=== PATIENT | female | born 1965 | race Caucasian/White ===

== ENCOUNTER 2020-04-15 16:03 | Inpatient (IN) | payer OTHER ==
[~2020-04-15] VITALS: Ht 165.1 cm; Wt 71.7 kg
[~2020-04-15 16:03] MED LIST: BUPR75TA21 PO; DULO60CA45 PO; QUIN5TAB11 PO
[2020-04-15] MEDS ORDERED: DEXTROSE 50%-WATER 50 ML DISP.SYRIN ONE ×3 (16:07→21:58)
--- NOTE | 2020-04-15 16:20 | NUR ---
[facility] HOME, PASSED OUT. HYPOGLYCEMIC UPON EMS ARRIVAL. GLUCAGON IM AND D10 250ML GIVEN CARDIOVASCULAR TECHNICIAN. BG RECHECK 88 CARDIOVASCULAR TECHNICIAN. PT AAOX2 SLOW TO RESPOND, VSS, RR EVEN & UNLABORED. DENIES CP, SOB, DIZZINESS, N/V AT THIS TIME. DR. ORDONEZ AT FOR EVAL. PT ABLE TO MOVE ALL EXTREMITIES SLOWLY, NO FACIAL DROOP. PLACED ON OXYACETYLENE BURNER, NSR. MEDICATED W/ D50 IVP, PT RYAN WELL. WILL CONT TO MONITOR.
[2020-04-15] MEDS ORDERED: IV NS 0.9% 1,000 ML BAG IV ONE (16:30)
[2020-04-15] MEDS ORDERED: DEXTROSE 50%-WATER 50 ML DISP.SYRIN IV ONE (16:30)
--- NOTE | 2020-04-15 16:49 | NUR ---
PT TO CT VIA [facility].
[2020-04-15 16:57] LABS: BASOPHILS % (AUTO) 0.1 % (0.0-2.0); HEMATOCRIT 46 % (33-45); HEMOGLOBIN 14.9 g/dL (11.5-14.8); LYMPHOCYTES # (AUTO) 1.2 /CMM (0.8-4.8); LYMPHOCYTES % (AUTO) 7.7 % (20.0-44.0); MEAN CORPUSCULAR HGB CONC 32 g/dl (31.0-36.0); MEAN CORPUSCULAR VOLUME 94 fL (82-100); MONOCYTES # (AUTO) 0.8 /CMM (0.1-1.30); MONOCYTES % (AUTO) 5.6 % (2.0-12.0); NEUTROPHILS # (AUTO) 13.1 /CMM (1.8-8.9); NEUTROPHILS % (AUTO) 86.6 % (43.0-81.0); PLATELET COUNT (AUTO) 381 /CMM (150-450); RED BLOOD CELL COUNT(AUTO) 4.88 MIL/uL (4.0-5.2); WHITE BLOOD COUNT (AUTO) 15.2 K/uL (4.3-11.0)
[2020-04-15 17:08] LABS: CALCIUM, SERUM 8.6 mg/dL (8.5-10.1); CARBON DIOXIDE 30 mmol/L (21-32); CHLORIDE 104 mmol/L (98-107); CREATININE 1.2 mg/dL (0.6-1.3); GLUCOSE 211 mg/dL (74-106); POTASSIUM 4.1 mmol/L (3.5-5.1); SODIUM SERUM 140 mmol/L (136-145); UREA NITROGEN, BLOOD 20 mg/dL (7-18)
[2020-04-15 17:10] LABS: SERUM AMMONIA 13 umol/L (11-32)
[2020-04-15 17:14] LABS: ALANINE AMINOTRANSFERASE 27 U/L (12-78); ALBUMIN 3.2 g/dL (3.4-5.0); ALCOHOL, BLOOD < 3 mg/dL (0-0); ALKALINE PHOSPHATASE 90 U/L (46-116); ASPARTATE AMINOTRANSFERASE 62 U/L (15-37); BILIRUBIN,DIRECT 0.1 mg/dL (0.0-0.2); BILIRUBIN,TOTAL 0.1 mg/dL (0.2-1.0); TOTAL PROTEIN, SERUM 6.8 g/dL (6.4-8.2)
[2020-04-15 17:22] LABS: THYROID STIMULATING HORMONE 0.654 uIU/mL (0.358-3.74)
[2020-04-15] MEDS ORDERED: DILTIAZEM HCL 50 MG IV IV ONE (17:30)
[2020-04-15] MEDS ORDERED: DILTIAZEM HCL 30 MG TABLET PO ONE (17:30)
[2020-04-15] MEDS ORDERED: ENOXAPARIN SODIUM 80 MG/0.8 ML DISP.SYRIN SQ ONE ×2 (17:30→17:40)
[2020-04-15] MEDS ORDERED: DILTIAZEM HCL 30 MG TABLET ONE (17:40)
[2020-04-15] MEDS ORDERED: DILTIAZEM HCL 50 MG IV ONE (17:42)
--- NOTE | 2020-04-15 17:52 | NUR ---
MEDICATED PER ERMD ORDER FOR FAST HR, PT RYAN WELL. PT STABLE, NAD NOTED AT THIS TIME.
[2020-04-15 17:59] LABS: SALICYLATE 0.6 mg/dL (2.8-20.0)
[2020-04-15] MEDS ORDERED: AMPH10TA4 MT (18:02)
[2020-04-15] MEDS ORDERED: DULO30CA52 MT (18:02)
[2020-04-15] MEDS ORDERED: BUPR-51 MT (18:02)
[2020-04-15] MEDS ORDERED: LEVO75TA7 MT (18:02)
[2020-04-15] MEDS ORDERED: INSU100V SQ (18:02)
--- NOTE | 2020-04-15 19:05 | NUR ---
PT ASLEEP, EASILY AWAKEN BY VERBAL STIMULI & WILL GO BACK TO SLEEP. VSS. DENIES CP, SOB, DIZZINESS, N/V AT THIS TIME. ON TELE, NSR & WILL CONT TO MONITOR.
--- NOTE | 2020-04-15 20:06 | NUR ---
PT BLOOD SUGAR 32MG/DL. MEDICATED WITH D5O IVP PER DR. ORDONEZ'S ORDER, PT RYAN WELL.
[2020-04-15] MEDS ORDERED: DEXTROSE 50%-WATER 50 ML DISP.SYRIN IVP ONE ×2 (20:30→22:00)
--- NOTE | 2020-04-15 21:50 | NUR ---
REPORT GIVEN TO KIA OSCAR FOR JAYSHREE.
[2020-04-15 22:20] VITALS: BP 128/77
--- NOTE | 2020-04-15 22:30 | NUR ---
TELE-1/[employer] REP DURING ADMISSION ASSESSMENT PT ADMITTING TO DRINKING RUBBING ALCOHOL. SOCIAL SERVICE CONSULT ORDERED.
[2020-04-15] MEDS ORDERED: IV D5/0.45 NACL 1,000 ML IV PRN (22:57)
[2020-04-15] MEDS ORDERED: ZOLPIDEM TARTRATE 5 MG TABLET PO PRN (23:00)
[2020-04-15] MEDS ORDERED: MORPHINE SULFATE INJ 2 MG/ML DISP.SYRIN IV PRN (23:00)
[2020-04-15] MEDS ORDERED: HYDROCODONE/APAP 5/325MG TABLET PO PRN (23:00)
[2020-04-15] MEDS ORDERED: MAG HYDROX/AL HYDROX/SIMETH 30 ML UDC PO PRN (23:00)
[2020-04-15] MEDS ORDERED: NITROGLYCERIN 0.4 MG/TAB BOTTLE SL PRN (23:00)
[2020-04-15] MEDS ORDERED: Z GUARD REMEDY 2 OZ OINT TP PRN (23:00)
[2020-04-15] MEDS ORDERED: MAGNESIUM HYDROXIDE 30 ML UDC PO PRN (23:00)
[2020-04-15] MEDS ORDERED: INSULIN REGULAR, HUMAN 100 UNIT/ML 3 ML VIAL SQ PRN (23:00)
[2020-04-15] MEDS ORDERED: ACETAMINOPHEN 325 MG TABLET PO PRN (23:00)
[2020-04-15] MEDS ORDERED: DEXTROSE 50%-WATER 50 ML DISP.SYRIN IV PRN (23:00)
[2020-04-16] VITALS: BP 120/90
--- NOTE | 2020-04-16 00:38 | NUR ---
BUSINESS SYSTEMS ANALYST NOTES, INFORMED DR CHAMBERS ABOUT THE RESULTS FOR TROPONIN LEVEL 0.356 AND HE REPLIED WITH NO NEW ORDERS AT THIS TIME, HE ASKED IF PATIENT C/O CHEST PAIN OR SOB, PATIENT DENIES CP/SOB AT THIS TIME, AND MD STATED THAT PATIENT ALREADY IN [place], AND THEREFORE NO NEW ORDERS AT THIS TIME, WILL CONTINUE TO MONITOR CLOSELY.
--- NOTE | 2020-04-16 00:50 | NUR ---
TELE-1/[facility] [facility] NP INSERTED RIGHT UPPER ARM MIDLINE. PT TOLERATED WELL.
[2020-04-16 04:00] VITALS: BP 105/60
[2020-04-16 06:12] LABS: BASOPHILS % (AUTO) 0.3 % (0.0-2.0); EOSINOPHILS % (AUTO) 0.1 % (0.0-6.0); HEMATOCRIT 39 % (33-45); HEMOGLOBIN 12.9 g/dL (11.5-14.8); LYMPHOCYTES # (AUTO) 1.1 /CMM (0.8-4.8); LYMPHOCYTES % (AUTO) 12.5 % (20.0-44.0); MEAN CORPUSCULAR HGB CONC 33 g/dl (31.0-36.0); MEAN CORPUSCULAR VOLUME 94 fL (82-100); MONOCYTES # (AUTO) 1.1 /CMM (0.1-1.30); MONOCYTES % (AUTO) 12.6 % (2.0-12.0); NEUTROPHILS # (AUTO) 6.4 /CMM (1.8-8.9); NEUTROPHILS % (AUTO) 74.5 % (43.0-81.0); PLATELET COUNT (AUTO) 305 /CMM (150-450); WHITE BLOOD COUNT (AUTO) 8.6 K/uL (4.3-11.0)
[2020-04-16 06:29] LABS: THYROID STIMULATING HORMONE 0.595 uIU/mL (0.358-3.74)
[2020-04-16] MEDS: BLOOD SUGAR DIAGNOSTIC 1 EACH STRIP IN SCH ×2 (06:35→12:26)
[2020-04-16 06:38] LABS: CALCIUM, SERUM 8.5 mg/dL (8.5-10.1); CREATININE 1.4 mg/dL (0.6-1.3); MAGNESIUM 1.6 mg/dL (1.8-2.4); PHOSPHORUS 2.3 mg/dL (2.5-4.9); POTASSIUM 4.4 mmol/L (3.5-5.1)
--- NOTE | 2020-04-16 06:51 | NUR ---
TELE-1/INTERNAL COMMUNICATIONS INTERN CRITICAL BLOOD GLUCOSE 511 MAX COVERAGE GIVEN PER SLIDING SCALE DR. RADHA KRAMER. AWAITING CALL BACK. WILL CONTINUE TO MONITOR.
[2020-04-16] MEDS ORDERED: LEVOTHYROXINE SODIUM 75 MCG TABLET PO SCH (07:00)
--- NOTE | 2020-04-16 07:03 | NUR ---
TELE-1/RECEIVING TEAM MEMBER INSULIN PUMP SENT TO PHARMACY. RECEIPT IN PT CHART.
--- NOTE | 2020-04-16 07:17 | NUR ---
MID LEVEL GAME DESIGNER OPENING NOTE RECEIVED REPORT FROM [facility] SHIFT NURSE. PT AWAKE IN BED, ALERT AND ORIENTED X 4, ON ROOM AIR, SATURATING WELL, RESPIRATIONS EVEN AND UNLABORED, NO SIGNS OF RESPIRATORY DISTRESS NOTED. SINUS RHYTHM ON TELE MONITOR. RIGHT UPPER ARM MIDLINE INTACT, PATENT. BLOOD GLUCOSE CHECKED: 495MG/DL. PT REPORTS HEADACHE, NAUSEA, THIRST. DENIES ANY SI AT THIS TIME. BED IN LOW POSITION, LOCKED, CALL LIGHT WITHIN REACH. INTRODUCED SELF TO PT AND DISCUSSED PLAN OF CARE.
[2020-04-16 08:00] VITALS: BP 128/68
[2020-04-16] MEDS: ONDANSETRON HCL/PF 4 MG/2 ML VIAL IVP PRN ×3 (08:02→13:29)
[2020-04-16 08:13] VITALS: BP 128/68
[2020-04-16] MEDS ORDERED: DULOXETINE HCL 30 MG CAPSULE.DR PO SCH (09:00)
[2020-04-16] MEDS ORDERED: ASPIRIN EC 81 MG TABLET.DR PO SCH (09:00)
[2020-04-16] MEDS ORDERED: AMPHET ASP/AMPHET/D-AMPHET 10 MG TABLET PO SCH ×2 (09:00)
[2020-04-16] MEDS ORDERED: ENOXAPARIN SODIUM 80 MG/0.8 ML DISP.SYRIN SQ SCH (09:00)
[2020-04-16] MEDS ORDERED: BUPROPION XL 150 MG TAB.ER.24 PO SCH (09:00)
--- NOTE | 2020-04-16 09:15 | NUR ---
RECEIVED CALL FROM SISTER STEFAN- WHO STATES SHE IS WORRIED ABOUT HER SISTERS WELL BEING, STATES HER SISTER HAS TALKED ABOUT SELF HARM. STEFAN ALSO STATED THAT SHE DOESNT THINK ITS A GOOD IDEA FOR PATIENT TO BE DISCHARGED AND TO GO BACK HOME WITH HER .
--- NOTE | 2020-04-16 09:15 | NUR ---
PT STATES SHE WANTS TO LEAVE AMA. NORRIS ROGER NOTIFIED, ORDERED CRISIS TEAM EVALUATION.
--- NOTE | 2020-04-16 10:28 | NUR ---
GAVE REPORT TO CONTRERAS ADAM FOR JAYSHREE
--- NOTE | 2020-04-16 10:30 | NUR ---
TAMELA RN NOTES RECEIVED PT. ALERT AND ORIENTED X4. BED IN LOWEST POSITION. CALL LIGHT WITHIN REACH. RAILS ARE UP X2. WILL CONTINUE TO MONITOR
[2020-04-16] MEDS: Magnesium 1GM/D5W 100ML PREMIX 100 ML IV SCH ×2 (10:52→12:05)
[2020-04-16 12:00] VITALS: BP_SYST 117; BP_SYST 98; BP_DIAS 59; BP_DIAS 67
[2020-04-16] MEDS ORDERED: K PHOS NEUTRAL 250 MG TABLET PO ONE (12:00)
--- NOTE | 2020-04-16 12:30 | NUR ---
TAMELA RN NOTES PSYCH EVAL WAS DONE. PT WAS CLEARED.WAITING FOR DC ORDERS
[2020-04-16 12:33] VITALS: BP 117/67
--- NOTE | 2020-04-16 12:48 | NUR ---
SW CONSULT: Scraper Tender reviewed pt's chart and consulted with pt's nurse, Nakita prior to conducting a consult, "Pt admits to drinking rubbing alcohol this week." Per Nakita, the pt was assessed and cleared by psychiatry and is set to discharge home with her in 1-2 hours. Per Nakita, a psych consult was ordered due to third constitution party information received from the pt's sister indicating that the pt has previously reported suicidal ideation. Scraper Tender conducted the consult at bedside. The pt appeared slightly disoriented and was preoccupied about her insulin pump. Upon assessment, the pt admitted to drinking a "tiny, tiny bit" of rubbing alcohol with orange juice. Pt reported an extensive history of drug and alcohol use, last use of both being approximately 4 years ago. Pt reported she underwent inpatient drug and alcohol treatment at [facility] in [place], "a few years ago." Pt denies any drug or alcohol use of this time, aside from the episode of rubbing alcohol ingestion. Scraper Tender offered drug and alcohol resources; pt declined. 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 Pt reported she is looking forward to discharging home with her and feels safe doing so. Scraper Tender provided active listening and emotional support.
[2020-04-16] MEDS ORDERED: RIVA10TA PO (13:48)
--- NOTE | 2020-04-16 14:52 | NUR ---
TAMELA RN NOTES RECEIVED DC ORDER FROM DR NORRIS ROGER. PT SIGNED DC AND BELONGING FORM. VS WNL. PT WAS WHEELED DOWN TO HER CAR.
--- NOTE | 2020-04-16 14:59 | NUR ---
TAMELA RN NOTES IV DC. PT IS IN STABLE CONDITION . VS WNL.
== END 2020-04-16 15:00 | disposition home or self-care (01) | DRG 637 ==
LOC: ER 16:11 → TELE1 20:18
PROVIDERS: ATTEND Nurse Practitioner Acute Care
DX: E11.649 Type 2 diabetes mellitus with hypoglycemia without coma (principal); I21.A1 Myocardial infarction type 2; G93.41 Metabolic encephalopathy; I48.91 Unspecified atrial fibrillation; Z79.4 Long term (current) use of insulin; D72.829 Elevated white blood cell count, unspecified; Z96.41 Presence of insulin pump (external) (internal); E83.42 Hypomagnesemia
CPT/HCPCS: 36410; 36415; 70450-TC; 71045-TC; 80048-TC; 80061-TC; 80076-TC; 80305; 82140-TC; 82962-TC; 83735-TC; 83880; 84100-TC; 84443-TC; 84484-TC; 84703-TC; 85025-TC; 85730-TC; 87081-TC; 93307-TC; G0378; G0480; J1650; J1815; J2405; J3475; J3490; J7030; J7042

== ENCOUNTER 2022-11-13 15:01 | Inpatient (IN) | payer BC, OTHER ==
[~2022-11-13] VITALS: Ht 165.1 cm; Wt 65.8 kg
[2022-11-13] VITALS (7 sets, daily range): BP systolic 108–137; BP diastolic 49–76
[~2022-11-13 15:01] MED LIST changes: -BUPR75TA21 PO; +DULO30CA52 MT; -DULO60CA45 PO; +INSU100V SQ; +LEVO75TA7 MT; -QUIN5TAB11 PO; +RIVA10TA PO
[2022-11-13] MEDS ORDERED: IV NS 0.9% 1,000 ML BAG IV ONE ×3 (15:30→17:00)
--- NOTE | 2022-11-13 15:30 | NUR ---
TO ER 02, LABS DRAWN
--- NOTE | 2022-11-13 15:31 | NUR ---
IVF FLUIDS GIVEN ORDERED
--- NOTE | 2022-11-13 15:35 | NUR ---
Accu Check Blood glucose level: HIGH
[2022-11-13] MEDS ORDERED: ONDANSETRON HCL/PF 4 MG/2 ML VIAL ONE (15:36)
[2022-11-13 15:59] LABS: BASOPHILS # (AUTO) 0.1 K/uL (0.0-0.2); BASOPHILS % (AUTO) 0.4 % (0.0-2.0); HEMATOCRIT 44 % (33-45); HEMOGLOBIN 12.5 g/dL (11.5-14.8); LYMPHOCYTES # (AUTO) 1.3 K/uL (0.8-4.8); LYMPHOCYTES % (AUTO) 6.6 % (20.0-44.0); MEAN CORPUSCULAR HGB CONC 29 g/dl (31.0-36.0); MEAN CORPUSCULAR VOLUME 101 fL (82-100); MONOCYTES # (AUTO) 1.2 K/uL (0.1-1.30); NEUTROPHILS # (AUTO) 17.2 K/uL (1.8-8.9); PLATELET COUNT (AUTO) 526 K/uL (150-450); RED BLOOD CELL COUNT(AUTO) 4.33 MIL/uL (4.0-5.2); WHITE BLOOD COUNT (AUTO) 19.8 K/uL (4.3-11.0)
[2022-11-13] MEDS ORDERED: ONDANSETRON HCL/PF 4 MG/2 ML VIAL IV ONE (16:00)
--- NOTE | 2022-11-13 16:00 | NUR ---
RAPID COVID SWAB DONE AND SENT TO LAB
[2022-11-13 16:29] LABS: ALANINE AMINOTRANSFERASE 29 U/L (12-78); ALBUMIN 3.8 g/dL (3.4-5.0); ALKALINE PHOSPHATASE 157 U/L (46-116); ASPARTATE AMINOTRANSFERASE 17 U/L (15-37); BILIRUBIN,DIRECT 0.1 mg/dL (0.0-0.2); BILIRUBIN,TOTAL 0.5 mg/dL (0.2-1.0); CALCIUM, SERUM 10.4 mg/dL (8.5-10.1); CHLORIDE 88 mmol/L (98-107); CREATININE 2.2 mg/dL (0.6-1.3); POTASSIUM 5.7 mmol/L (3.5-5.1); SODIUM SERUM 132 mmol/L (136-145); TOTAL PROTEIN, SERUM 8.1 g/dL (6.4-8.2); UREA NITROGEN, BLOOD 51 mg/dL (7-18)
[2022-11-13 16:49] LABS: CARBON DIOXIDE 7 mmol/L (21-32); GLUCOSE 831 mg/dL (74-106); LIPASE 1667 U/L (73-393)
--- NOTE | 2022-11-13 16:57 | NUR ---
NOTIFIED BY ADMITTING THAT THE PT NEEDS TO HAVE AUTHORIZATION FOR THE PT TO STAY HERE
[2022-11-13] MEDS ORDERED: INSULIN REGULAR, HUMAN 100 UNITS in IV NS 0.9% 100 ML IV PRN ×2 (17:00)
[2022-11-13] MEDS ORDERED: BUPR-319 PO (17:04)
[2022-11-13] MEDS ORDERED: THYR30TA2 PO (17:04)
[2022-11-13] MEDS ORDERED: LOSA50TA39 PO (17:04)
[2022-11-13] MEDS ORDERED: INSU100V11 (17:04)
--- NOTE | 2022-11-13 17:15 | NUR ---
ROOM 256
--- NOTE | 2022-11-13 17:22 | NUR ---
REPORT GIVEN TO ERICK ADAM OF ICU
[2022-11-13] MEDS ORDERED: AZTREONAM 1 G in IV NS 0.9% 100 ML IV ONE (17:30)
[2022-11-13] MEDS ORDERED: VANCOMYCIN 1 GM in IV D5W 250 ML IV ONE (17:30)
[2022-11-13] MEDS ORDERED: AZITHROMYCIN 500 MG in IV D5W 250 ML IV ONE (17:30)
--- NOTE | 2022-11-13 17:30 | NUR ---
RN note REcevied patient from ER, transferred to unit by jailene, with KIA mayo's accompany. Patient is alert and conscious, complained cold. Cardiac monitro showed SR HR 80/min. BP 155/89mmHg. SpO2 96% RA, RR 23/min. Right IJ and right hand IV sites are dry and intact. Insulin drip running via RIJ and two NS IVF running through Right hand. Blood sugar showed >600. Call pantoja is placed within reach. Bed is locked and palced in the lowest position. Will continue monitoring.
--- NOTE | 2022-11-13 17:45 | NUR ---
URINE SPECIMEN COLLECTED AND SENT TO LAB.
[2022-11-13] MEDS: BLOOD SUGAR DIAGNOSTIC 1 EACH STRIP IN SCH ×6 (18:05→23:04)
--- NOTE | 2022-11-13 18:15 | NUR ---
RN note Noted that blood culture is not taken yet and hold antibiotics until blood culture is taken. Started antibiotics at 1815.
[2022-11-13] MEDS: IV NS 0.9% 1,000 ML IV SCH (18:22)
[2022-11-13 18:23] LABS: BILIRUBIN,URINE NEGATIVE (NEGATIVE); COLOR,URINE YELLOW (YELLOW); LEUKOCYTE ESTERASE ,URINE NEGATIVE (NEGATIVE); NITRITE, URINE NEGATIVE (NEGATIVE); PH,URINE 5.5 (5.0-8.0); PROTEIN,URINE NEGATIVE (NEGATIVE); UGLUCOSE 3+ mg/dL (NEGATIVE); UROBILINOGEN,URINE 0.2 EU/dL (0.2)
[2022-11-13] MEDS ORDERED: INSULIN REGULAR, HUMAN 100 UNIT/ML 10 ML VIAL IV ONE (18:30)
[2022-11-13] MEDS ORDERED: ONDANSETRON HCL/PF 4 MG/2 ML VIAL IVP PRN (18:30)
[2022-11-13] MEDS ORDERED: ACETAMINOPHEN 325 MG TABLET PO PRN (18:30)
[2022-11-13] MEDS ORDERED: Z GUARD REMEDY 4 OZ OINT TP PRN (18:30)
[2022-11-13] MEDS ORDERED: IV NS 0.9% 1,000 ML IV PRN (18:30)
[2022-11-13] MEDS: INSULIN REGULAR, HUMAN 100 UNIT in IV NS 0.9% 99 ML IV PRN ×4 (18:53→23:05)
[2022-11-13 19:05] LABS: CALCIUM, SERUM 8.8 mg/dL (8.5-10.1); POTASSIUM 4.9 mmol/L (3.5-5.1)
--- NOTE | 2022-11-13 19:21 | NUR ---
RN note Blood sugar at 1900 was >600. Adminsitered stat IV 10U insulin and continue insulin infusion.
--- NOTE | 2022-11-13 19:30 | NUR ---
ICU NOTES Received report from outgoing RN patient awake oriented x1.Reoriented to place and time. Respiration even and unlabored with acetone like breath.O2 saturation 100% on RA.Dx:DKA. H/O IDDM,HTN,DVT,PSYCHOSIS and Substance Abuse.ST 106-112.Patient with elevated blood sugar 500+ Insulin gtt infusing per protocol.IVF NS infusing at 150 ml/hr.Patient denies pain or any discomfort.Safety measures implemented.Call light at bedside.Continue monitoring.
[2022-11-13] MEDS ORDERED: LEVOFLOXACIN 750 MG /D5W 150ML 750 MG in PREMIX 1 EA IV SCH (20:00)
--- NOTE | 2022-11-13 20:19 | NUR ---
ICU/RN: CRITICAL BMP RESULTS RELAYED TO MERCED OWENS ACNP CO2 6 AND GLUCOSE 705. NO NEW ORDERS. KEEP INSULIN DRIP RUNNING AT 10UNITS/HR. FOLLOW UP BMP AT 2230. WILL CONTINUE PLAN OF CARE.
--- NOTE | 2022-11-13 21:02 | NUR ---
ICU/RN: per chaz thornton acnp change to DKA algorithm 4 and run max dose 20units/hr. CURRENT POC BG 550.
[2022-11-13] MEDS: DOXYCYCLINE 100 MG in IV D5W 100 ML IV SCH (21:08)
[2022-11-13] MEDS: HEPARIN SODIUM, PORCINE 5000 UNITS/1 ML VIAL SQ SCH (21:09)
[2022-11-13 22:53] LABS: CALCIUM, SERUM 8.6 mg/dL (8.5-10.1); CREATININE 1.8 mg/dL (0.6-1.3); POTASSIUM 4.2 mmol/L (3.5-5.1)
[2022-11-13] MEDS: IV NS 0.9% 250 ML IV PRN (23:11)
[2022-11-14] VITALS (29 sets, daily range): BP systolic 98–159; BP diastolic 51–86
--- NOTE | 2022-11-14 | NUR ---
ICU NOTES. Patient verbalized please help me and did not void since 1899.Bladder distended MD notified. With orders received and carried out.Malone Catheter FR# 16 Inserted under aseptic technique drained 1100 ml.Patient tolerated procedure well and resting comfortably after.
[2022-11-14] MEDS: BLOOD SUGAR DIAGNOSTIC 1 EACH STRIP IN SCH ×9 (00:12→08:01)
[2022-11-14] MEDS: IV NS 0.9% 1,000 ML IV SCH (01:32)
[2022-11-14] MEDS ORDERED: IV PREMIX D5 1/2NS + KCL 1,000 ML IV ONE (02:18)
--- NOTE | 2022-11-14 02:26 | NUR ---
ICU NOTES Patient latest Blood sugar check 245.Current IVF changed to D5W1/2 NS+20 Meq KCL at 100 ml/hr per protocol.
[2022-11-14] MEDS ORDERED: IV PREMIX D5 1/2NS + KCL 1,000 ML IV PRN (02:30)
[2022-11-14 03:12] LABS: CALCIUM, SERUM 8.9 mg/dL (8.5-10.1); CREATININE 1.6 mg/dL (0.6-1.3); POTASSIUM 4.1 mmol/L (3.5-5.1)
[2022-11-14 03:45] LABS: ABG BASE EXCESS -5.4 mmol/L; ABG OXYGEN SATURATION 97.8 % (92.0-98.5); ABG PCO2 27.2 mmHg (35.0-45.0); ABG PO2 101.4 mmHg (75.0-100.0); AaDO2 15.8 mmHg; COHb 0.2 % (0.5-1.5); MetHb 0.3 % (0.0-1.5); O2Hb 97.3 % (94.0-97.0); SITE, ABG Right Radial; VENT MODE, BG Room Air
[2022-11-14 04:56] LABS: BASOPHILS # (AUTO) 0.1 K/uL (0.0-0.2); BASOPHILS % (AUTO) 0.4 % (0.0-2.0); EOSINOPHILS % (AUTO) 0.1 % (0.0-6.0); HEMATOCRIT 33 % (33-45); HEMOGLOBIN 10.7 g/dL (11.5-14.8); LYMPHOCYTES # (AUTO) 1.1 K/uL (0.8-4.8); LYMPHOCYTES % (AUTO) 5.6 % (20.0-44.0); MEAN CORPUSCULAR HGB CONC 32 g/dl (31.0-36.0); MEAN CORPUSCULAR VOLUME 90 fL (82-100); MONOCYTES # (AUTO) 1.9 K/uL (0.1-1.30); MONOCYTES % (AUTO) 9.8 % (2.0-12.0); NEUTROPHILS # (AUTO) 16.8 K/uL (1.8-8.9); NEUTROPHILS % (AUTO) 84.1 % (43.0-81.0); PLATELET COUNT (AUTO) 375 K/uL (150-450); RED BLOOD CELL COUNT(AUTO) 3.67 MIL/uL (4.0-5.2)
[2022-11-14 05:12] LABS: CALCIUM, SERUM 8.7 mg/dL (8.5-10.1); CREATININE 1.4 mg/dL (0.6-1.3); MAGNESIUM 1.7 mg/dL (1.8-2.4); PHOSPHORUS 1.4 mg/dL (2.5-4.9); POTASSIUM 4.1 mmol/L (3.5-5.1)
[2022-11-14 05:42] LABS: THYROID STIMULATING HORMONE 1.038 uIU/mL (0.358-3.74)
--- NOTE | 2022-11-14 06:30 | NUR ---
ICU NOTES Patient resting in no acute distress,VS remains stable.ST low 100's.Patient confused safety precaution maintained.Insulin gtt infusing at 3 Units/hr and will continue to monitor Blood sugar hourly per protocol.IVF infusing well.Bed bath rendered.BM x1 formed stools.Kept clean and dry. Adequate urine output.Continue to monitor.
--- NOTE | 2022-11-14 07:15 | NUR ---
RN note Received patient in bed, spontaneous eye opening, GCS [id number]. hall monitor showed SR HR 100/min. BP 104/60mmHg, SpO2 98% RA, RR~20/min. Right IJ and right hand IV sites are dry and patent, with insulin infusion running at 3U/hr via right IJ; and maintanence IVF running through the right hand. Continue hourly blood glucose monitoring until four consecutive readings of 140-180 have been reached(so far readings are within this range from 0500). Call pantoja is placed within reach. Bed is locked and placed in the lowest position. Will continue monitoring and care.
--- NOTE | 2022-11-14 08:00 | NUR ---
RN note Patient is disoriented to date, time, place and person and became agitated. Called patient's Mr. Chirag Hedrick about the patient's condition and told him the need for acute medical restraints. Informed Dr. Quezada about confusion and obtained the order for restraints use. Regarding patient's acute confusion, TEST LEAD APPLICATION TESTING Dominik Harris ordered IV ativan Q6H prn. Given as ordered. Keep observation.
[2022-11-14] MEDS: PANTOPRAZOLE 40 MG TABLET.DR PO SCH (08:29)
[2022-11-14] MEDS: LOSARTAN POTASSIUM 50 MG TABLET PO SCH (08:30)
[2022-11-14] MEDS: BUPROPION XL 150 MG TAB.ER.24 PO SCH (08:30)
--- NOTE | 2022-11-14 08:30 | NUR ---
RN note Informed DR. Quezada about the latest blood glucose level and anion gap. He said to follow protocol and to switch to Q2H blood glucose monitoring as patient has four consecutive readings within the range of 140-180mg/dL.
[2022-11-14] MEDS: HEPARIN SODIUM, PORCINE 5000 UNITS/1 ML VIAL SQ SCH ×2 (08:35→21:20)
[2022-11-14] MEDS: DOXYCYCLINE 100 MG in IV D5W 100 ML IV SCH ×2 (08:36→21:19)
[2022-11-14] MEDS: THYROID 30 MG TABLET PO SCH (08:36)
[2022-11-14] MEDS: LORAZEPAM INJ 2 MG/ML VIAL IV PRN ×2 (08:58→22:21)
[2022-11-14 09:13] LABS: CALCIUM, SERUM 8.8 mg/dL (8.5-10.1); CREATININE 1.3 mg/dL (0.6-1.3); POTASSIUM 3.9 mmol/L (3.5-5.1)
[2022-11-14] MEDS ORDERED: BLOOD SUGAR DIAGNOSTIC 1 EACH STRIP IN SCH ×3 (10:00→14:00)
[2022-11-14] MEDS: Magnesium 1GM/D5W 100ML PREMIX 100 ML IV SCH ×2 (11:07→12:23)
[2022-11-14] MEDS ORDERED: IV PREMIX D5 1/2NS + KCL 1,000 ML IV SCH (12:32)
[2022-11-14 13:10] LABS: CALCIUM, SERUM 8.7 mg/dL (8.5-10.1); CREATININE 1.2 mg/dL (0.6-1.3)
--- NOTE | 2022-11-14 14:28 | NUR ---
Stop insulin drip Informed Dr. Quezada about the latest lab results and blood sugar. said that with respect to normal anion gap and normalising blood sugar, we can stop the insulin drip, and switch to ACHS moderate blood sugar check. He also ordered clear fluid for today and when patient is more awake, can give her normal diet tomorrow. Insulin drip is stopped. Switch NS KCl drip to normal NS at 100mL/hr. Will follow blood sugar level.
[2022-11-14] MEDS ORDERED: DEXTROSE 50%-WATER 50 ML DISP.SYRIN IV PRN (14:30)
[2022-11-14] MEDS: IV NS 0.9% 1,000 ML IV PRN (14:38)
[2022-11-14] MEDS ORDERED: NEUTRA PHOS 1 POWD.PACKET NG ONE (15:30)
[2022-11-14] MEDS ORDERED: Sodium Phosphate 15 MMOL in IV NS 0.9% 245 ML IV SCH (16:30)
--- NOTE | 2022-11-14 16:30 | NUR ---
Rn note Patient is drowsy and cannot tolerate oral phosphate. Informed pharmacist and they switch to IV form instead.
[2022-11-14] MEDS: BLOOD SUGAR DIAGNOSTIC 1 EACH STRIP VI SCH ×2 (17:33→21:17)
[2022-11-14] MEDS: INSULIN REGULAR, HUMAN 100 UNIT/ML 3 ML VIAL SQ PRN (17:35)
[2022-11-14 17:41] LABS: CALCIUM, SERUM 8.6 mg/dL (8.5-10.1); CREATININE 1.1 mg/dL (0.6-1.3); POTASSIUM 4.5 mmol/L (3.5-5.1)
[2022-11-14] MEDS: INSULIN GLARGINE, 100 UNIT/ML CARTRIDGE SQ SCH (21:28)
[2022-11-14] MEDS: *INSULIN REGULAR(HUMULIN R)HUM 100 UNIT/ML VIAL SQ PRN (21:29)
--- NOTE | 2022-11-14 22:20 | NUR ---
ICU/RN: PT AGITATED. TRYING TO GET OUT OF BED. RESTLESS. RAMBLING NONSENSICAL. ATIVAN GIVEN ORDERED.
[2022-11-15] VITALS (14 sets, daily range): BP systolic 126–174; BP diastolic 52–90
[2022-11-15] MEDS ORDERED: diphenhydrAMINE HCL 50 MG/ML VIAL IV PRN
[2022-11-15] MEDS ORDERED: OLANZAPINE 10 MG VIAL IM ONE
--- NOTE | 2022-11-15 00:16 | NUR ---
ICU/RN: PT AGGRESSIVLY AGITATED. MAKING MULTIPLE ATTEMPS TO EXIT BED. PT TALKING NONSENSE. BREAKING OUT OF SOFT RESTRAINTS. PT MEDICATED ORDERD.
[2022-11-15] MEDS: IV NS 0.9% 1,000 ML IV PRN ×3 (00:21→23:56)
[2022-11-15] MEDS: IV NS 0.9% 250 ML IV PRN (01:49)
[2022-11-15 05:00] LABS: BASOPHILS % (AUTO) 0.2 % (0.0-2.0); EOSINOPHILS % (AUTO) 0.2 % (0.0-6.0); HEMATOCRIT 33 % (33-45); HEMOGLOBIN 10.7 g/dL (11.5-14.8); LYMPHOCYTES % (AUTO) 16.3 % (20.0-44.0); MEAN CORPUSCULAR HGB CONC 33 g/dl (31.0-36.0); MEAN CORPUSCULAR VOLUME 89 fL (82-100); MONOCYTES # (AUTO) 0.9 K/uL (0.1-1.30); MONOCYTES % (AUTO) 7.3 % (2.0-12.0); NEUTROPHILS # (AUTO) 9.4 K/uL (1.8-8.9); PLATELET COUNT (AUTO) 283 K/uL (150-450); RED BLOOD CELL COUNT(AUTO) 3.69 MIL/uL (4.0-5.2); WHITE BLOOD COUNT (AUTO) 12.3 K/uL (4.3-11.0)
[2022-11-15 05:14] LABS: CALCIUM, SERUM 8.6 mg/dL (8.5-10.1); CREATININE 0.9 mg/dL (0.6-1.3); MAGNESIUM 1.7 mg/dL (1.8-2.4); PHOSPHORUS 1.7 mg/dL (2.5-4.9); POTASSIUM 3.4 mmol/L (3.5-5.1)
[2022-11-15] MEDS: LOSARTAN POTASSIUM 50 MG TABLET PO SCH (08:25)
[2022-11-15] MEDS: THYROID 30 MG TABLET PO SCH (08:25)
[2022-11-15] MEDS: BUPROPION XL 150 MG TAB.ER.24 PO SCH (08:25)
[2022-11-15] MEDS: PANTOPRAZOLE 40 MG TABLET.DR PO SCH (08:25)
[2022-11-15] MEDS: BLOOD SUGAR DIAGNOSTIC 1 EACH STRIP VI SCH ×4 (08:26→21:15)
--- NOTE | 2022-11-15 08:27 | NUR ---
DR. MITCHELL SEEN PT., NO ORDER MADE AT THIS TIME.
[2022-11-15] MEDS: INSULIN REGULAR, HUMAN 100 UNIT/ML 3 ML VIAL SQ PRN ×2 (08:29→12:52)
[2022-11-15] MEDS ORDERED: Magnesium 1GM/D5W 100ML PREMIX 100 ML IV SCH (08:30)
[2022-11-15] MEDS: HEPARIN SODIUM, PORCINE 5000 UNITS/1 ML VIAL SQ SCH ×2 (08:31→21:00)
--- NOTE | 2022-11-15 09:20 | NUR ---
TRANSFERRED PATIENT TO [facility] UNIT BED 104 PER ORDER, CHARGE NURSE-MAE POWELL; BEDSIDE REPORT GIVEN TO RN-JUAN. PATIENT NO SSx OF ACUTE DISTRESS NOTED.
--- NOTE | 2022-11-15 10:03 | NUR ---
RN NOTE RECEIVED FROM ICU. PT ASLEEP, RESPONSIVE TO STIMULI. IV ACCESS ON RIJ PICC. V/S STABLE. WILL CONTINUE TO MONITOR.
[2022-11-15] MEDS: DOXYCYCLINE 100 MG in IV D5W 100 ML IV SCH ×2 (10:43→20:45)
[2022-11-15] MEDS: POTASSIUM PHOSPHATE MM 7.5 MMOL in IV NS 0.9% 100 ML IV SCH ×2 (11:02→14:05)
[2022-11-15] MEDS ORDERED: POTASSIUM CHLORIDE 20 MEQ POWDER PACKET NG SCH (12:00)
[2022-11-15] MEDS ORDERED: risperiDONE 0.25 MG TABLET PO PRN (12:30)
[2022-11-15] MEDS ORDERED: NEUTRA PHOS 1 POWD.PACKET PO ONE (15:30)
[2022-11-15] MEDS: LEVOFLOXACIN 750 MG /D5W 150ML 750 MG in PREMIX 1 EA IV SCH (17:17)
--- NOTE | 2022-11-15 19:41 | NUR ---
TAMELA/RN PATIENT IS SLEEPING, NO SIGNS OF DISTRESS NOTED, CALL LIGHT IN REACH, FALL PRECAUTIONS PER PROTOCOL IMPLEMENTED, WILL MONITOR.
[2022-11-15] MEDS: *INSULIN REGULAR(HUMULIN R)HUM 100 UNIT/ML VIAL SQ PRN (21:13)
[2022-11-15] MEDS: INSULIN GLARGINE, 100 UNIT/ML CARTRIDGE SQ SCH (21:15)
[2022-11-15] MEDS: LORAZEPAM INJ 2 MG/ML VIAL IV PRN (23:00)
--- NOTE | 2022-11-15 23:06 | NUR ---
TAMELA/RN PATIENT IS ANXIOUS AND AGITATED, ATIVAN 1 MG IVP WAS ADMINISTERED ORDERED. WILL MONITOR.
--- NOTE | 2022-11-15 23:30 | NUR ---
TAMELA/RN PATIENT WAS NOTED TO BE SLEEPING, NO SIGNS OF DISTRESS NOTED. WILL CONTINUE TO MONITOR.
--- NOTE | 2022-11-16 02:18 | NUR ---
TAMELA/RN AT 0100 PATIENT WAS ANXIOUS ABOUT HER BOTH WRIST RESTRAINTS AND WANTS IT OUT. ON ASSESSMENT, PATIENT WAS NOTED TO BE ALERT AND ORIENTED X 4, ABLE TO STATE DATE AND PLACE CORRECTLY. TOLD PATIENT THAT RESTRAINTS WILL BE REMOVED IF SHE WILL NOT TRY TO PULL OUT HER IV SPECIALLY THE IJ, PER PATIENT," WHY SHOULD I DO THAT". RESTRAINT WAS RELEASED. CONTINUED AGITATION WAS NOTED, ATTEMPTED TO GIVE RISPERDAL 4 MG ORDERED, BUT PATIENT REFUSED. PATIENT CALLED BROTHER. BROTHER CALLED AND I SPOKE TO HIM, BROTHER WANTED ME TO RELEASE THE RESTRAINT, INFORMED THE BROTHER THAT THE RESTRAINT HAS BEEN REMOVED. CONTINUED AGITATION AND CRYING NOTED, PATIENT CONTINUED TO REFUSED THE RISPERDAL. AROUND 0217, PATIENT FINALLY AGREED TO TAKE THE RISPERDAL. WILL MONITOR.
[2022-11-16] MEDS ORDERED: OLANZAPINE 10 MG VIAL IM ONE (03:30)
--- NOTE | 2022-11-16 03:35 | NUR ---
TAMELA/RN PATIENT IS MORE AGITATED, YELLING, UNDRESSING, TRYING TO PULL OUT IV, NYDIA OWENS, PLANT WORKER, WAS NOTIFIED, RECEIVED ORDER OF ZYPREXA 10 MG IM AND WAS ADMINISTERED AT O334. BILATERAL SOFT WRIST RESTRAINT WAS REORDERED TO AVOID PULLING HER IV. WILL MONITOR.
[2022-11-16 04:00] VITALS: BP_SYST 141; BP_DIAS 80; BP_DIAS 83
[2022-11-16] MEDS: HYDROCODONE/APAP 5/325MG TABLET PO PRN ×2 (04:52→18:17)
--- NOTE | 2022-11-16 05:41 | NUR ---
TAMELA/RN FOUND F/C AT BEDSIDE, PULLED OUT. WILL NOT RE INSERT F/C, WILL ENDORSE TO DAY SHIFT RN TO ASK MD IF TO INSERT F/C.
[2022-11-16 05:50] LABS: BASOPHILS % (AUTO) 0.6 % (0.0-2.0); HEMATOCRIT 34 % (33-45); HEMOGLOBIN 11.4 g/dL (11.5-14.8); LYMPHOCYTES # (AUTO) 1.8 K/uL (0.8-4.8); LYMPHOCYTES % (AUTO) 27.4 % (20.0-44.0); MEAN CORPUSCULAR HGB CONC 34 g/dl (31.0-36.0); MEAN CORPUSCULAR VOLUME 88 fL (82-100); MONOCYTES # (AUTO) 0.7 K/uL (0.1-1.30); MONOCYTES % (AUTO) 11.4 % (2.0-12.0); NEUTROPHILS # (AUTO) 3.8 K/uL (1.8-8.9); NEUTROPHILS % (AUTO) 58.6 % (43.0-81.0); PLATELET COUNT (AUTO) 286 K/uL (150-450); RED BLOOD CELL COUNT(AUTO) 3.84 MIL/uL (4.0-5.2); WHITE BLOOD COUNT (AUTO) 6.5 K/uL (4.3-11.0)
[2022-11-16 06:03] LABS: CREATININE 0.7 mg/dL (0.6-1.3); MAGNESIUM 1.6 mg/dL (1.8-2.4); PHOSPHORUS 2.1 mg/dL (2.5-4.9); POTASSIUM 3.1 mmol/L (3.5-5.1)
--- NOTE | 2022-11-16 06:13 | NUR ---
TAMELA/RN PATIENT APPEARS SLEEPING, APPEARS COMFORTABLE, NO SIGNS OF DISTRESS NOTE, CALL LIGHT IN REACH, ALL NEEDS ATTENDED AT THIS TIME, WILL CONTINUE TO MONITOR.
--- NOTE | 2022-11-16 07:15 | NUR ---
MED SURGE RN OPEN NOTE: RECEIVED PATIENT SLEEPING BUT AWAKE TO VERBAL STIMULI. ALERT TO NAME, TIME AND PLACE, REORIENTED TO SITUATION. MOIST ORAL MUCOSA. ON 02 2 LITERS NASAL CANNULA, SATING AT 94 %. SKIN IS WARM AND DRY. FAIR SKIN TURGOR. PERIPHERAL IV ON RIGHT IJ RUNNING IVF OF NS 100ML/HR. BILATERAL SOFT WRIST RESTRAINTS ON. NO SKIN BREAKDOWN, CIRCULATION IS WITHIN REMI. HOB ELEVATED SEMI-FOWLERS POSITION. BILATERAL HALF SIDE RAILS UP X2. BED IN LOW POSITION, LOCKED, EXIT ALARM ON. CALL LIGHT IN REACH. DENIES PAIN OR DISCOMFORT.
[2022-11-16] MEDS: BLOOD SUGAR DIAGNOSTIC 1 EACH STRIP VI SCH ×4 (07:36→21:36)
[2022-11-16] MEDS: PANTOPRAZOLE 40 MG TABLET.DR PO SCH (07:41)
[2022-11-16] MEDS: INSULIN REGULAR, HUMAN 100 UNIT/ML 3 ML VIAL SQ PRN ×3 (07:42→17:46)
[2022-11-16] MEDS ORDERED: Magnesium 1GM/D5W 100ML PREMIX 100 ML IV SCH (08:30)
[2022-11-16] MEDS: THYROID 30 MG TABLET PO SCH (08:39)
[2022-11-16] MEDS: DOXYCYCLINE HYCLATE (100 MG) 100 MG TABLET PO SCH ×2 (08:39→21:25)
[2022-11-16] MEDS: LOSARTAN POTASSIUM 50 MG TABLET PO SCH (08:39)
[2022-11-16] MEDS: HEPARIN SODIUM, PORCINE 5000 UNITS/1 ML VIAL SQ SCH ×2 (08:55→21:26)
[2022-11-16] MEDS ORDERED: BUPROPION XL 150 MG TAB.ER.24 PO SCH (09:00)
--- NOTE | 2022-11-16 09:00 | NUR ---
ALERT AND ORIENTED TO NAME TIME WITH EPISODES OF CONFUSION AND DELIRIUM. ACUTE MEDICAL RESTRAINTS RENEWED DUE TO AT [facility] FOR INJURY FROM SERGIO ARSHAD. SAFETY PRECAUTIONS MAINTAINED. KEPT CLEAN AND COMFORTABLE.
[2022-11-16] MEDS: POTASSIUM PHOSPHATE MM 7.5 MMOL in IV NS 0.9% 100 ML IV SCH ×2 (09:42→12:51)
[2022-11-16] MEDS: IV NS 0.9% 1,000 ML IV SCH ×2 (09:42→22:02)
--- NOTE | 2022-11-16 09:56 | NUR ---
Dr. Quezada assessed patient with orders to DC bilateral sorf wrist restraints noted. Patient is alert and oriented to name, time and place. Denies pain or discomfort.
[2022-11-16] MEDS ORDERED: POTASSIUM CHLORIDE 20 MEQ POWDER PACKET NG SCH ×2 (10:30→11:00)
[2022-11-16 12:50] VITALS: BP 131/79
[2022-11-16] MEDS ORDERED: NEUTRA PHOS 1 POWD.PACKET PO ONE (16:00)
[2022-11-16] MEDS: LEVOFLOXACIN 750 MG /D5W 150ML 750 MG in PREMIX 1 EA IV SCH (17:43)
--- NOTE | 2022-11-16 18:31 | NUR ---
MED SURGE CLOSING NOTE: ALERT AND ORIENTED TO NAME, TIME, PLACE AND SITUATION. RIGHT IJ PERIPHERAL IV PATENT WITH NO S/S OF COMPLICATIONS. DRESSING IS CLEAN AND DRY WITH IVF WITH NS 100 ML/HR. IV ABX ORDERED WITH NO A/R. SAFETY PRECAUTIONS MAINTAINED. KEPT CLEAN AND COMFORTABLE. ABLE TO TOLERATE MECHANICAL SOFT DIET FOR DINNER. BLOOD GLUCOSE CHECKED AND COVERED ORDERED. NO S/S OF HYPO OR HYPERGLYCEMIA. CONTINENT OF BOWEL AND BLADDER. ASSISTED TO BATHROOM. ROUTINE CARE PROVIDED NEEDED. PO FLUIDS TAKEN WELL. ON PAIN MANAGEMENT WITH PRN NORCO AND EFFECTIVE. SAFETY PRECAUTIONS MAINTAINED. HOB ELEVATED WITH SEMI-FOWLERS POSITION. BILATERAL HALF SIDE RAILS UP X2. BED IN LOW POSITION, LOCKED, EXIT ALARM ON. CALL LIGHT IN REACH. ABLE TO SPEAK WITH FAMILY OVER HER OWN CELL PHONE. PATIENT HAD EPISODES OF SLEEPING IN AM AND DURING EVENING. AT THIS TIME SHE IS AWAKE.
--- NOTE | 2022-11-16 19:38 | NUR ---
RN OPENING NOTES: RECEIVED PT IN BED, AWAKE, A/O X4 AND VERBALLY RESPONSIVE. ON ROOM AIR AND PT TOLERATED WELL. IV ACCESS ON RIGHT IJ INTACT AND PATENT, DRESSING INTACT. RUNNING NS AT 75CC/HR. NO C/O PAIN OR DISCOMFORT. NO ACUTE DISTRESS. ABLE TO GO TO BATHROOM WITH ASSIST. ALL SAFETY PRECAUTIONS IN PLACE. HOB ELEVATED. BED IN LOWEST POSITION AND LOCKED. SIDE RAILS UP X2, PLACE CALL LIGHT WITH IN REACH. WILL CONTINUE TO MONITOR.
[2022-11-16 20:00] VITALS: BP 120/62
[2022-11-16] MEDS: INSULIN GLARGINE, 100 UNIT/ML CARTRIDGE SQ SCH (21:40)
[2022-11-16] MEDS: *INSULIN REGULAR(HUMULIN R)HUM 100 UNIT/ML VIAL SQ PRN (21:42)
--- NOTE | 2022-11-16 21:49 | NUR ---
RN NOTES: PT'S BLOOD SUGAR 309. LANTUS 10 UNITS AND 8 UNITS OF REGULAR INSULIN GIVEN. NO S/S OF HYPER/HYPOGLYCEMIA. WILL CONTINUE TO MONITOR
[2022-11-17] MEDS: HYDROCODONE/APAP 5/325MG TABLET PO PRN (03:53)
--- NOTE | 2022-11-17 03:56 | NUR ---
RN NOTES: PT C/O GENERALIZED BODY PAIN, NORCO GIVEN PRN ORDERED. WILL CONTINUE TO MONITOR
[2022-11-17 04:00] VITALS: BP 142/68
[2022-11-17 06:33] LABS: BASOPHILS % (AUTO) 0.4 % (0.0-2.0); EOSINOPHILS % (AUTO) 4.3 % (0.0-6.0); HEMATOCRIT 35 % (33-45); HEMOGLOBIN 11.5 g/dL (11.5-14.8); LYMPHOCYTES # (AUTO) 1.8 K/uL (0.8-4.8); LYMPHOCYTES % (AUTO) 31.5 % (20.0-44.0); MEAN CORPUSCULAR HGB CONC 33 g/dl (31.0-36.0); MEAN CORPUSCULAR VOLUME 89 fL (82-100); MONOCYTES # (AUTO) 0.5 K/uL (0.1-1.30); MONOCYTES % (AUTO) 9.5 % (2.0-12.0); NEUTROPHILS # (AUTO) 3.1 K/uL (1.8-8.9); NEUTROPHILS % (AUTO) 54.3 % (43.0-81.0); PLATELET COUNT (AUTO) 283 K/uL (150-450); RED BLOOD CELL COUNT(AUTO) 3.88 MIL/uL (4.0-5.2); WHITE BLOOD COUNT (AUTO) 5.6 K/uL (4.3-11.0)
[2022-11-17 06:58] LABS: CALCIUM, SERUM 9.5 mg/dL (8.5-10.1); CREATININE 0.8 mg/dL (0.6-1.3); MAGNESIUM 1.8 mg/dL (1.8-2.4); PHOSPHORUS 3.9 mg/dL (2.5-4.9); POTASSIUM 3.7 mmol/L (3.5-5.1)
--- NOTE | 2022-11-17 07:15 | NUR ---
RN OPENING NOTES: RECEIVED PT IN BED, AWAKE, A/O X4 ABLE TO VERBALIZE NEEDS . ON ROOM AIR AND PT TOLERATED WELL. IV ACCESS ON RIGHT IJ INTACT AND PATENT, DRESSING INTACT. RUNNING NS AT 75CC/HR. NO C/O PAIN OR DISCOMFORT. NO ACUTE DISTRESS. ABLE TO GO TO BATHROOM WITH ASSIST. ALL SAFETY PRECAUTIONS IN PLACE. HOB ELEVATED. BED IN LOWEST POSITION AND LOCKED. SIDE RAILS UP X2, PLACE CALL LIGHT WITH IN REACH. WILL CONTINUE TO MONITOR.
[2022-11-17] MEDS: PANTOPRAZOLE 40 MG TABLET.DR PO SCH (07:25)
[2022-11-17] MEDS: BLOOD SUGAR DIAGNOSTIC 1 EACH STRIP VI SCH ×2 (07:26→11:53)
[2022-11-17] MEDS: INSULIN REGULAR, HUMAN 100 UNIT/ML 3 ML VIAL SQ PRN ×2 (07:30→11:55)
[2022-11-17] MEDS: DOXYCYCLINE HYCLATE (100 MG) 100 MG TABLET PO SCH (08:57)
[2022-11-17 08:58] VITALS: BP 153/82
[2022-11-17] MEDS: LOSARTAN POTASSIUM 50 MG TABLET PO SCH (08:58)
[2022-11-17] MEDS: THYROID 30 MG TABLET PO SCH (08:58)
[2022-11-17] MEDS: HEPARIN SODIUM, PORCINE 5000 UNITS/1 ML VIAL SQ SCH (08:59)
--- NOTE | 2022-11-17 12:50 | NUR ---
rn intake note PATIENT IS AT STABLE CONDITION , RECEIVED ORDER TO DISCHARGE PATIENT FROM THE [facility] , DISCHARGE INSTRUCTIONS PROVIDED TO THE PATIENT VERBALLY AND IN WRITTEN , PATIENT VERBALIZED UNDERSTANDING
== END 2022-11-17 12:43 | disposition home or self-care (01) | DRG 919 ==
LOC: ER 15:07 → ICU 17:29 → MEDSG1 11-15 09:41
PROVIDERS: ADMIT Nurse Practitioner Family; ATTEND Internal Medicine
DX: T85.614A Breakdown (mechanical) of insulin pump, initial encounter (principal); E10.10 Type 1 diabetes mellitus with ketoacidosis without coma; G92.8 Other toxic encephalopathy; K85.90 Acute pancreatitis without necrosis or infection, unspecified; N17.0 Acute kidney failure with tubular necrosis; E87.1 Hypo-osmolality and hyponatremia; K86.1 Other chronic pancreatitis; N39.0 Urinary tract infection, site not specified; F05 Delirium due to known physiological condition; R65.10 Systemic inflammatory response syndrome (SIRS) of non-infectious origin without acute organ dysfunction; D75.839 Thrombocytosis, unspecified; E87.5 Hyperkalemia; Z20.822 Contact with and (suspected) exposure to COVID-19; Z79.01 Long term (current) use of anticoagulants; Z79.4 Long term (current) use of insulin; F32.A Depression, unspecified; B95.1 Streptococcus, group B, as the cause of diseases classified elsewhere; E86.1 Hypovolemia; Y74.2 Prosthetic and other implants, materials and accessory general hospital and personal-use devices associated with adverse incidents; Y92.009 Unspecified place in unspecified non-institutional (private) residence as the place of occurrence of the external cause; Z91.14 Patient's other noncompliance with medication regimen
CPT/HCPCS: 36415; 36600; 71045-TC; 76770-TC; 80048-TC; 80061-TC; 80076-TC; 82803-TC; 82962-TC; 83605-TC; 83690-TC; 83735-TC; 83880; 84100-TC; 84443-TC; 84484-TC; 85025-TC; 87040-TC; 87081-TC; 87086-TC; 97112-TC; 97116-TC; 97530-TC; A4216; A9563; C9803; G0378; G0480; J0456; J1200; J1644; J1815; J1956; J2060; J2405; J3370; J3475; J3490; J7030; J7050; J7060